=== PATIENT | female | born 1940 | race Caucasian/White ===

== ENCOUNTER 2016-11-03 18:22 | Emergency (ER) | payer MEDICARE, BC ==
--- NOTE | 2016-11-04 19:48 | ER ---
ADMIT: 11/03/2016 RM/LOC: ER [facility] MR#: [id number] [facility] [address] [place], [place] [id number] SAIDA PINA [address] [facility] [address] [place] [address] Emergency Room Report SEX: F AGE: 76 : 1940 DATE: 11/03/2016 TIME: 1821 Please refer to my T-sheet for complete H and P. HISTORY OF PRESENT ILLNESS: Briefly, the patient is a 76-year-old who comes in with general weakness, just does not feel well. She said that she has had a cold for a few days. She was seen by Dr. Jonas, who states they are kind of watching her, seeing how she is doing. She has got feeling worse today, came in by ambulance after eating her supper. PHYSICAL EXAMINATION: VITAL SIGNS: Her blood pressure 136/61, pulse 97, respirations 16, temp 96, saturating 96%. GENERAL: No acute distress. HEENT: Grossly normal. LUNGS: Clear. HEART: Regular. ABDOMEN: Soft. SKIN: No rash. NEURO: She is alert, oriented, no focal findings. EMERGENCY DEPARTMENT COURSE: We did a CT head that was negative. EKG was sinus rhythm, rate 93, no changes. CBC was normal except hemoglobin 10.6. Chemistries normal except BUN 24, glucose 150, creatinine 1.2, troponin negative. Her urine was sent. We gave her Zithromax 500 p.o. I discussed this patient with Dr. Jonas. I gave her 500 mL normal saline bolus, Reglan 10 IV, she was feeling much better and ready for discharge. ASSESSMENT: 1. Upper respiratory infection. 2. Bronchitis. 3. General weakness. PLAN: Fluids, Z-Bola. Follow up with Sumi this week. Return if worse and rest. Gary Moraes MD/ pelon JOB #: [id number] CC: Chuck Maya MD, Attending Physician Eyad Jonas MD, Family Physician
== END 2016-11-03 20:45 | disposition home or self-care (01) ==
LOC: ER 18:22
DX: J40 Bronchitis, not specified as acute or chronic (principal); J06.9 Acute upper respiratory infection, unspecified; R53.1 Weakness; E78.00 Pure hypercholesterolemia, unspecified; F32.9 Major depressive disorder, single episode, unspecified; Z88.0 Allergy status to penicillin; Z88.2 Allergy status to sulfonamides; Z88.8 Allergy status to other drugs, medicaments and biological substances; Z79.899 Other long term (current) drug therapy